=== PATIENT | female | born 1960 | race Caucasian/White ===

== ENCOUNTER → 2017-03-13 | Outpatient (CLI) | payer OTHER ==
[~2017-03-13] MED LIST: ACIDOPHILUS1 CAP PO; ALPRAZOLAM1 MG PO; ASPIRIN 81MG TA81 MG PO; ASPIRIN CHILDRE81 M1 PO; BACLOFEN 10MG T10 MG PO; BENZONATATE100 MG PO; CLEOCIN HCL300 MG PO; DICYCLOMINE20 MG PO; FIORICET 325 MG1 TAB PO; FOLIC ACID0.4 MG PO; HYDROCODONE/ACE1 TA5 PO; HYZAAR 50-12.51 EACH PO; IBUPROFEN200 MG PO; IMODIUM2 MG PO; LASIX 20MG. TAB20 MG PO; LEVAQUIN500 MG PO; LISINOPRIL 10MG10 MG PO; LUTEIN20 M1 PO; MEDROL 4MG. DOSE4 MG PO; METFORMIN500 MG PO; MOTRIN400 MG PO; MOTRIN600 MG PO; NEXIUM40 MG PO; NORFLEX100 MG PO; OMEPRAZOLE40 MG PO; POTASSIUM CHLO10 ME3 PO; PROVENTIL0.09 MG/A1 IH; SALMETEROL-F28 PUFFS IN; SAVELLA100 MG PO; SAVELLA50 MG PO; SERTRALINE 100100 MG PO; SINGULAIR 10 MG10 MG PO; SPIRIVA HA1 PUFF/INH IH; SYSTANE 0.4%-0.1 SOL OP; TOPROL XL 50MG50 MG PO; TRAMADOL 50MG T50 M1 PO; VENTOLIN H0.09 MG/AC IH; XANAX 1MG TABLET1 MG PO; ZETIA10 MG PO; ZOFRAN4 MG PO; ZOLOFT100 MG PO
--- NOTE | 2017-03-13 12:16 | RADIOLOGY REPORT PS360 ---
EXAM: CERVICAL SPINE 4 OR 5 VIEWS HISTORY: Neck pain with right shoulder pain ACUTE RT SHOULDER PAIN ORDERING PHYSICIAN: Tiffany Mix PATIENT AGE: 57 years COMPARISON: None FINDINGS: No fracture or dislocation. No lytic or blastic change. There is minimal anterolisthesis of C2 on C3, C3 on C4, and C4 on C5 of 2 to 3 mm at each level. There are osteoarthritic changes of the atlantoaxial joint. Prominent facet hypertrophic/sclerotic changes are present C3-C7 on both sides with uncovertebral and facet hypertrophy. There is resultant severe right-sided foraminal narrowing at C3-C4 and C4-C5 with moderate foraminal narrowing at C5-C6. On the left there is severe foraminal narrowing at C3-C4 and C4-C5 with moderate foraminal narrowing at C5 C6 and C6-C7. IMPRESSION: Severe facet spondylosis with bilateral foraminal narrowing as described above
--- NOTE | 2017-03-13 12:18 | RADIOLOGY REPORT PS360 ---
[id number] VIEWS HISTORY: ACUTE RT SHOULDER PAIN ORDERING PHYSICIAN: Tiffany Mix PATIENT AGE: 57 years COMPARISON: 09/24/2015 FINDINGS: Mild osteoarthritic changes involve the acromioclavicular joint and glenohumeral joint. There is mild hypertrophic change along the inferior aspect of the acromion. No fracture or dislocation. No lytic or blastic change. No significant subacromial stenosis. Incidental note is made of multiple calcified granulomas of the right lung with an old fracture of the right seventh rib. IMPRESSION: Mild acromioclavicular and glenohumeral osteoarthritic change
== END ==
LOC: RAD 11:06
DX: M25.511 Pain in right shoulder (principal)

== ENCOUNTER → 2017-03-22 | Outpatient (CLI) | payer OTHER ==
--- NOTE | 2017-03-22 17:23 | RADIOLOGY REPORT PS360 ---
MRI-C-SPINE W/O, MRI-3D RENDERING/MYELOGRAM HISTORY: Neck pain with bilateral arm pain and numbness and tingling Spondylosis OF CERVICAL REGION, neck pain with right shoulder pain, abnormal plain films, assess spondylosis with foraminal narrowing ORDERING PHYSICIAN: Tiffany Mix PATIENT AGE: 57 years COMPARISON: Radiograph of 03/13/2017 TECHNIQUE: Standard multiplanar multiecho sequences are performed without contrast. 3-D MIP and myelographic images are also rendered and reviewed FINDINGS: There is normal alignment. The craniocervical junction has an unremarkable appearance. C2-C3: Mild/moderate left-sided foraminal narrowing from facet and uncovertebral hypertrophy. C3-C4: Moderate right foraminal narrowing from uncovertebral hypertrophy. C4-C5: Moderate to severe facet hypertrophic change right greater than left with moderate -severe right-sided foraminal narrowing C5-C6: Facet hypertrophy with mild right-sided foraminal narrowing. C6-C7: Mild facet hypertrophic change. C7-T1 mild facet hypertrophic change. No disc herniation or canal stenosis evident. There is increased T1 and T2 signal involving the T2 vertebral body consistent with lipomatous involvement IMPRESSION: 1. Facet spondylosis as described above with resultant foraminal narrowing mild to moderate on the left at C2-C3, moderate on the right at C3-C4, moderate to severe on the right at C4-C5 and mild on the right at C5-C6 2. No disc herniation or canal stenosis
== END ==
LOC: RAD 07:53
DX: M43.12 Spondylolisthesis, cervical region (principal)

== ENCOUNTER 2017-08-03 14:42 | Observation (INO) | payer OTHER ==
[~2017-08-03] VITALS: Ht 154.9 cm; Wt 99.4 kg
[2017-08-03] MEDS ORDERED: BREO ELLIPTA1 POW IH (16:49)
[2017-08-03] MEDS ORDERED: GABAPENTIN100 M1 PO (16:50)
[2017-08-03] MEDS ORDERED: TRADJENTA5 MG PO (16:51)
[2017-08-03] MEDS ORDERED: LOSARTAN POTASS1 TA1 PO (16:53)
[2017-08-03 16:55] VITALS: BP 137/64
[2017-08-03 16:56] VITALS: BP 137/64
--- NOTE | 2017-08-03 18:46 | RADIOLOGY REPORT PS360 ---
CHEST(2 VIEWS-NOT PORTABLE) HISTORY: chest pain chest pain. Previous lung biopsy on right History of lymphoma B cell Patient Age: 57 years: Female Ordering Physician: Huan Malave MD TECHNIQUE: PA and lateral chest COMPARISON :November 17, 2015 PA and lateral chest. Also CT chest May 2015 FINDINGS No focal pneumonia.. No pneumothorax Right chest We again see the mild pleural thickening along the lateral right chest which appears similar if not slightly more pronounced than 2015 studies. Associated elevation right hemidiaphragm and chronic pleural changes right base. No pleural effusion. No acute findings. Vascular clips right axilla overlying the right chest with smaller right breast versus left. Requires correlation clinically. Similar appearance seen on 2015 CT Left chest. Lungs clear no active disease. The heart upper normal in size and similar to 2015 studies. Magaly and mediastinal structures unremarkable. Osseous chest wall appears similar and stable. T-spine intact. IMPRESSION: .. Nothing definitely acute No prominent change since November 2014 chest film Chronic pleural changes on right with elevation right hemidiaphragm Diffuse pleural thickening along the lateral right chest again seen perhaps very slight more pronounced vs 2015.
[2017-08-03 19:15] VITALS: BP 137/64
[2017-08-03 20:06] VITALS: BP 119/42
[2017-08-04] VITALS (15 sets, daily range): BP systolic 100–128; BP diastolic 52–71
[2017-08-04 05:43] LABS: HEMOGLOBIN 13.7 g/dL (12.2-16.2); LYMPH % 20.1 % (10-50.0)
[2017-08-04 05:44] LABS: LYMPH # 1.3 K/mm3 (0.7-4.5)
--- NOTE | 2017-08-04 08:11 | PHARMACY CLINIC NOTE ---
Patient Demographics Patient Demographics Admission date: 08/03/17 Date: 08/04/17 Time: 0810 Allergies Coded Allergies: Sulfa (Sulfonamide Antibiotics) (Intermediate, I-RASH 04/07/17) codeine (Intermediate, HEART RACE 04/07/17) vancomycin (Intermediate, I-RASH 04/07/17) Cephalosporins (04/07/17) Macrolides (04/07/17) Penicillins (04/07/17) gabapentin (CRAZY 04/07/17) latex (REDNESS 04/07/17) soy (04/07/17) Influenza Virus Vaccines (SWELLING 04/07/17) pneumococcal vaccine (REDNESS 04/07/17) HEIGHT- FT: 5 IN: 1.00 K.395 VTE General Information Labs: Laboratory Tests 08/04 0505 Hematology Hgb (12.2 - 16.2 g/dL) 13.7 Hct (37.0 - 47.0 %) 42.0 Plt Count (142 - 424 K/mm3) 225 Disclaimer The following section includes nursing documentation that has been pulled in for pharmacy review. Patient's VTE score: 3 Patient's VTE Risk: LOW RISK Clinical trial participant? No VTE prophylaxis [id number] VTE prophylaxis ordered? Yes Type of prophylaxis/treatment: RADHA at 0810
--- NOTE | 2017-08-04 08:19 | CONSULT NOTE ---
Standard Demographics Patient Demo Date of Consultation: 08/04/17 Referring Provider: Mindy Malave MD Reason for Consultation: Angina class 3 PRIMARY DIAGNOSIS: ANGINA Problem list Problem list: 1. CAD, mild per patient, about 2006, [place], [place], Dr. Tomy Marin 2. DM, treated for about 5 yrs 3. HTN 4. Hyperlipidemia, intolerant of statins 5. B type Lymphoma, followed by Dr. Mckinley at A. S/P FNA of RLL with resultant lower lobe excision, Dr. Ortega B. S/P RNA of Left lung nodule 6. History of RIGHT breast cancer status post lumpectomy, chemotherapy and radiation approximately 1997 A. Patient has a marker and a nodule in the LEFT breast is being followed routinely. 7. Irritable bowel syndrome, diarrhea predominant 8. Chronic pain syndrome History of present illness: History of present illness: 57-year-old white female admitted from the primary care office yesterday for exertional shortness of breath over several days. Patient has a history of mild coronary disease by cardiac catheterization proximal and 10 years ago, she is diabetic, she smokes, takes treatment for hypertension and has history of hyperlipidemia but intolerant of statin therapy. She relates several days of increasing exertional shortness of breath with some intermittent discomfort between shoulder blades and in the back. She initially mention some LEFT shoulder discomfort 2 days ago but this seems more positional in nature. Patient denies any chest pressure but states her chest does feel tight upon exertion. No recent fever, chills, nausea, vomiting or diarrhea. She has noted some lower extremity edema over the last couple of days. Patient was admitted for possible angina pectoris. Troponins are normal overnight. Electrocardiogram is sinus and normal. Cardiology consulted for evaluation. Past Medical History: General: Hypertension Yes CVA No Seizures No TB No COPD Yes Asthma Yes Diabetes Yes Insulin Dependent No Insulin Pump No Angina No CA No Hyperlipidemia Yes Urinary No Cancer Yes Rheumatic H.D. No Ulcers No MRSA No GB Disease Yes Other CAD, MITRAL VALVE THICKEN Past Surgical HX: Previous Surgery?Y HYSTER C SECTION RT BREAST LUMPECTOMY Cholecystectomy LUNG BIOPSY X 4 CORE BIOPSY LT BREAST Allergies Coded Allergies: Sulfa (Sulfonamide Antibiotics) (Intermediate, I-RASH 04/07/17) codeine (Intermediate, HEART RACE 04/07/17) vancomycin (Intermediate, I-RASH 04/07/17) Cephalosporins (04/07/17) Macrolides (04/07/17) Penicillins (04/07/17) gabapentin (CRAZY 04/07/17) latex (REDNESS 04/07/17) soy (04/07/17) Influenza Virus Vaccines (SWELLING 04/07/17) pneumococcal vaccine (REDNESS 04/07/17) Home medications: Active Scripts Montelukast Sodium (Singulair 10MG) 10 MG PO DAILY #30 TAB Ref 2 Prov: 09/02/15 Reported Medications FLUTICASONE/VILANTEROL (Breo Ellipta 100-25 Mcg INH) 1 POW IH DAILY Gabapentin (Gabapentin 100MG) 100 MG PO BID Linagliptin (Tradjenta) 5 MG PO DAILY LOSARTAN/HYDROCHLOROTHIAZIDE (Losartan-Hctz 100-25 MG Tab) 1 TAB PO DAILY SERTRALINE HYDROCHLORIDE (Zoloft 100MG) 100 MG PO DAILY Metoprolol Succinate Xl (Toprol Xl) 50 MG PO QHS ASPIRIN (Aspirin) 81 MG PO QHS Current Medications: Current Medications Fentanyl Citrate 25 MCG PRN PRN IV Fentanyl Citrate 50 MCG PRN PRN IV Flumazenil 0.2 MG PRN PRN IV Heparin Sodium (Beef Lung) 5,000 UNITS PRN PRN IV Heparin Sodium/Sodium Chloride 3,000 UNITS PRN PRN IV Lidocaine HCl 20 ML ONCE ONE IJ (DC) Midazolam HCl 1 MG PRN PRN IV Midazolam HCl 1 MG PRN PRN IV Naloxone HCl 0.4 MG [id number] PRN IV Nitroglycerin 800 MCG PRN PRN IV Verapamil HCl 5 MG PRN PRN IV Aspirin 81 MG QHS PO Gabapentin 100 MG BID PO (DC) Gabapentin 100 MG BID PO Metoprolol Succinate 50 MG QHS PO Montelukast Sodium 10 MG QHS PO (DC) Montelukast Sodium 10 MG QHS PO Gabapentin 0 .STK-MED ONE .ROUTE (DCr) Montelukast Sodium 0 .STK-MED ONE PO (DC) Acetaminophen 650 MG Q4HP PRN PO Diagnostic Test (Pha) 1 EACH W/MEALS&HS FS Insulin Human [rDNA origin] SEE ADMIN CRITERIA FOR MEDIUM INTENSITY W/MEALS&HS SC Nicotine 21 MG DAILYP PRN TD Sodium Chloride 10 ML PRN PRN IV Immunization HX DT/Tetanus Unknown Pneumonia Excluded Other ALLERGIC TB Test in last year No Family history Family HX Diabetes No CAD No Hypertension No Hyperlipidemia Yes Cancer Yes TB No Social Hx: Smoking HX Tobacco Yes Type Cigarettes Packs/day 1 1/2 - 2 PACKS Are you/the child exposed to second-hand smoke: Yes Alcohol Alcohol: No Hx of Drug Use Drug Use? No Patien't marital status is Patient's support system is good Review of systems: Constitutional weakness. Respiratory SOB with excertion. Cardiovascular see HPI Gastrointestinal/Abdominal No no symptoms reported Genitourinary No: no symptoms reported. Musculoskeletal back pain. Neurological No: no symptoms reported. Exam: Admission Vital Signs: 1ST Vital Signs Result Date Time Pulse Ox 98 08/03 165 O2 Delivery ROOM AIR 08/03 165 B/P 137/64 08/03 1655 Temp 97.9 08/03 165 Pulse 74 08/03 1655 Resp 20 08/03 165 Last Vital Signs: Vital Signs Result Date Time Pulse Ox 94 08/04 429 B/P 116/55 08/04 042 O2 Delivery ROOM AIR 08/04 429 Temp 97.6 08/04 042 Pulse 62 08/04 0429 Resp 20 08/04 042 Exam General appearance: alert, awake, no acute distress Neck: no carotid bruit, no JVD Cardiovascular: regular rate & rhythm, no murmur Respiratory: clear to auscultation, good air movement ABD: soft, no tenderness Extremities: moves all, no peripheral edema Neuro: alert, intact, oriented Laboratory data: Laboratory Tests 08/04/17 0505: Creatine Kinase 85, CK-MB (CK-2) Rel Index 1.2, CK and CKMB Interp 1.0, Troponin I < 0.02 08/04/17 0505: Sodium 134 L, Potassium 3.5, Chloride 101, Carbon Dioxide 28, BUN 8, Creatinine 0.9, Estimated Creat Clear 111, Estimated GFR (MDRD) 65, Glucose 160 H, Calcium 9.5, WBC 6.3, RBC 4.56, Hgb 13.7, Hct 42.0, MCV 92.1, RDW 17.9 H, Plt Count 225 , Gran % 74.2, Gran # 4.7, Lymphocytes % 20.1, Monocytes % 5.7, Lymphocytes # 1.3, Monocytes # 0.4, PUBS MCHC 32.6, MCH 30.0 08/03/17 2315: Creatine Kinase 90, CK-MB (CK-2) Rel Index 0.8, CK and CKMB Interp 0.7, Troponin I < 0.02 08/03/171951: POC Glucose 242 H 08/03/171724: Creatine Kinase 83, CK-MB (CK-2) Rel Index 0.7, CK and CKMB Interp 0.6, Troponin I < 0.02 08/03/17 172: Sodium 133 L, Potassium 3.8, Chloride 99, Carbon Dioxide 29, BUN 9, Creatinine 1.0, Estimated Creat Clear 100, Estimated GFR (MDRD) 58 L, Glucose 269 H, Calcium 9.6, Total Bilirubin 0.3, AST 15, ALT 25, Alkaline Phosphatase 114, Total Protein 7.4, Albumin 3.1 L, Globulin 4.3 H, Albumin/Globulin Ratio 0.7 L 08/03/171714: POC Glucose 249 H Plan: Assessment: 1. Exertional shortness of breath with concern for angina pectoris in this diabetic patient with known previous coronary disease by cath approximately 2006. NADJA score of 4 (coronary disease, cardiac risk factors, recurrent angina symptoms, daily aspirin use). Cardiac catheterization recommended. Risks, benefits and procedure explained. Patient agrees to proceed. In light of the patient's tobacco use history, previous radiation therapy and previous lobectomy with recent lower extremity edema, would recommend RIGHT heart cath at the same time. 2. Hypertension 3. Diabetes mellitus 4. Hyperlipidemia 5. B cell lymphoma 6. Tobacco use Recommendations: Discussed with Dr. Man. See above. at 0818
--- NOTE | 2017-08-04 08:29 | ACUTE CARE PROGRESS NOTE (QUA) ---
Progress Notes Subjective Date 08/04/17 Time 0826 Patient/family reports: feeling better, no complaints Nursing reports: alert, no complaints Objective Findings Laboratory Tests 08/04/17 0505: Creatine Kinase 85, CK-MB (CK-2) Rel Index 1.2, CK and CKMB Interp 1.0, Troponin I < 0.02 08/04/17 0505: Sodium 134 L, Potassium 3.5, Chloride 101, Carbon Dioxide 28, BUN 8, Creatinine 0.9, Estimated Creat Clear 111, Estimated GFR (MDRD) 65, Glucose 160 H, Calcium 9.5, WBC 6.3, RBC 4.56, Hgb 13.7, Hct 42.0, MCV 92.1, RDW 17.9 H, Plt Count 225 , Gran % 74.2, Gran # 4.7, Lymphocytes % 20.1, Monocytes % 5.7, Lymphocytes # 1.3, Monocytes # 0.4, PUBS MCHC 32.6, MCH 30.0 08/03/17 2315: Creatine Kinase 90, CK-MB (CK-2) Rel Index 0.8, CK and CKMB Interp 0.7, Troponin I < 0.02 08/03/17 195: POC Glucose 242 H 08/03/17 1725: Creatine Kinase 83, CK-MB (CK-2) Rel Index 0.7, CK and CKMB Interp 0.6, Troponin I < 0.02 08/03/17 1725: Sodium 133 L, Potassium 3.8, Chloride 99, Carbon Dioxide 29, BUN 9, Creatinine 1.0, Estimated Creat Clear 100, Estimated GFR (MDRD) 58 L, Glucose 269 H, Calcium 9.6, Total Bilirubin 0.3, AST 15, ALT 25, Alkaline Phosphatase 114, Total Protein 7.4, Albumin 3.1 L, Globulin 4.3 H, Albumin/Globulin Ratio 0.7 L 08/03/17 1715: POC Glucose 249 H Vital Signs Date Time Temp Pulse Resp B/P Pulse O2 O2 Flow FiO2 Ox Delivery Rate 08/04 08 98.0 60 18 128/71 96 ROOM AIR 08/04 429 97.6 62 20 116/55 94 ROOM AIR 08/04 001 98.6 63 20 112/54 97 ROOM AIR 08/03 2006 98.3 76 20 119/42 95 ROOM AIR 09/28 1915 97.9 74 20 137/64 98 08/03 1656 97.9 74 20 137/64 98 ROOM AIR 08/03 1655 74 08/03 1655 97.9 74 20 13764 08/03 165 98 ROOM AIR Current Medications Fentanyl Citrate 25 MCG PRN PRN IV Fentanyl Citrate 50 MCG PRN PRN IV Flumazenil 0.2 MG PRN PRN IV Heparin Sodium (Beef Lung) 5,000 UNITS PRN PRN IV Heparin Sodium/Sodium Chloride 3,000 UNITS PRN PRN IV Lidocaine HCl 20 ML ONCE ONE IJ (DC) Midazolam HCl 1 MG PRN PRN IV Midazolam HCl 1 MG PRN PRN IV Naloxone HCl 0.4 MG [id number] PRN IV Nitroglycerin 800 MCG PRN PRN IV Verapamil HCl 5 MG PRN PRN IV Aspirin 81 MG QHS PO Gabapentin 100 MG BID PO (DC) Gabapentin 100 MG BID PO Metoprolol Succinate 50 MG QHS PO Montelukast Sodium 10 MG QHS PO (DC) Montelukast Sodium 10 MG QHS PO Gabapentin 0 .STK-MED ONE .ROUTE (DCr) Montelukast Sodium 0 .STK-MED ONE PO (DC) Acetaminophen 650 MG Q4HP PRN PO Diagnostic Test (Pha) 1 EACH W/MEALS&HS FS Insulin Human [rDNA origin] SEE ADMIN CRITERIA FOR MEDIUM INTENSITY W/MEALS&HS SC Nicotine 21 MG DAILYP PRN TD Sodium Chloride 10 ML PRN PRN IV Last VS-Temp:98.0 B/P:128/71 Pulse:60 Resp:18 SaO2:96 ROOM AIR Last weight lbs:219 oz:2 K.395 Method:Bed Scales Exam General appearance: normal appearance, alert, awake, no acute distress Eyes: normal exam ENT: normal exam Neck: normal inspection, full range of motion Cardiovascular: normal exam, regular rate & rhythm Respiratory: normal exam, clear to auscultation, chest non-tender, good air movement, no respiratory distress ABD: normal exam, soft Genitourinary: normal voiding & quantity Extremities: normal exam, moves all, warm Musculoskeletal: normal exam Skin: normal exam, intact, warm Neuro: normal exam, alert, intact, oriented Reviewed: allergies, medications, vital signs, lab results, radiology report, consult note Assessment/Plan Problem List 1. Edema 2. Chest wall pain Patient condition Stable Plan: continue current care, consult radiology physician assistant This inpt stay is expected to cross 2 MNs from start of care No Comments: jennifer delgado at 0824
--- NOTE | 2017-08-04 11:01 | RADIOLOGY REPORT PS360 ---
CARDIAC CATHETERIZATION DATE OF CATHETERIZATION:08/04/2017 10:40 AM PROCEDURES: 1. Right heart catheterization 2. Left heart catheterization 3. Left ventriculogram 4. Selective coronary angiogram INDICATION FOR TEST: 1. Class IV angina 2. Class III and IV congestive heart failure 3. Pulmonary hypertension Informed consent was obtained prior to the procedure. COMPLICATIONS: None ESTIMATED BLOOD LOSS: Less than 10 ml. TECHNIQUE: One percent lidocaine was used to anesthetize the right groin. The right femoral artery was accessed via the Seldinger technique. A 4-Mongolian and 7 dutch sheath was placed in the right femoral artery and vein respectfully. The JR-4 and JL-4 catheter was also used to perform left heart catheterization, left ventriculography and selective coronary angiogram. At the end of the procedure the patient was transferred to the post-op holding area in stable condition for arterial sheath removal. ANGIOGRAPHIC RESULTS: 1. The left main artery normal 2. The left anterior descending artery has mild luminal irregularities 3. The circumflex artery is non dominant and has mild luminal irregularities 4. The right coronary artery is dominant and has mid vessel 30% eccentric stenosis 5. The [place] ventriculogram reveals hyperdynamic ventricle at 75% The left ventricular end-diastolic pressure 20 mmHg HEMODYNAMICS: Right atrial pressure is 12 mm Hg. Pulmonary arterial pressure is 40/30 mm Hg. Pulmonary artery occlusion pressure is 22 mm Hg. SATURATIONS: RA is 73 %. PA is 70 %. IMPRESSION: 1. Mild nonflow limiting coronary artery disease 2. Hyperdynamic ventricle with at least moderate diastolic dysfunction accompanied by moderate pulmonary hypertension PLAN: 1. Baby aspirin daily 2. Patient would benefit from verapamil combined with beta blockers and diuretics. Her LVEDP is high which is subsequently causing her pulmonary hypertension. Patient has class III to IV diastolic congestive heart failure.
[2017-08-04 11:04] LABS: ARTERIAL O2 SAT CATH LAB 70 % (90-100); VENOUS O2 SAT CATH LAB 73 % (75-80)
--- NOTE | 2017-08-04 12:41 | RADIOLOGY REPORT PS360 ---
PROCEDURE: 2-D M-mode and color Doppler study INDICATIONS FOR THE TEST: Chest pain COPDX Heart Murmur Tobacco SmokingX Palpitations FatigueX Syncope EdemaX HypertensionXDiabetes MellitusX Rheumatic Fever SOB DOEXObesityXHyperlipidemia Family History HD Additional History PATIENT INFORMATION HEIGHT: 63 WEIGHT:219 GENDER: Female B/P:110/70 2-D/M-MODE INTERPRETATION: 2-D MEASUREMENTS OBSERVED VALUES IN CMS Right Ventricular Dimension (RVDd) 2.9 Interventricular Septum (Thickness)(IVsd) 1.1 Left Ventricular Internal Dimensions(LVIDd) 4.6 Left Ventricular Posterior Wall (Thickness)(LVPWd) 1.1 Aortic Root 2.8 Aortic Cusp Separation 2.0 Left Atrial Dimensions (LAD) 3.7 2D 1. Left atrium is mildly enlarged, left ventricle is normal size, left ventricle wall thickness is upper limit of the normal, there is preserved left ventricular systolic function, visually estimated ejection fraction 55% with no obvious regional wall motion abnormality. 2. The right atrium is normal size, right ventricle is mildly enlarged with normal contractility. 3. The aortic valve is minimally thickened and calcified, there is no aortic stenosis. 4. The mitral valve leaflets are minimally thickened, morphology of the mitral valve is not well visualized. 5. The tricuspid valve is structurally normal. 6. No significant pericardial effusion noted. DOPPLER INTERROGATION: Doppler interrogation of the aortic, mitral and tricuspid valvular presence of moderate to severe mitral and mild tricuspid regurgitation noted, tricuspid regurgitant jet velocity insufficient for calculation of the right ventricular systolic pressure, tissue Doppler is indicated of raised left atrial pressure. CONCLUSION: 1. Mildly enlarged left atrium, normal left ventricular size, visually estimated ejection fraction of 55% with no obvious regional wall motion abnormality. Tissue Doppler is indicated of raised left atrial pressure. 2. Abnormal mitral valve, morphology is not well visualized, this is associated with moderate to severe mitral regurgitation, if clinically indicated a transesophageal echocardiogram is recommended for further evaluation. 3. Mildly enlarged right ventricle with normal contractility. 4. No significant pericardial effusion noted.
[2017-08-04] MEDS ORDERED: CARDIZEM CD120 MG PO (16:40)
--- NOTE | 2017-08-04 16:46 | Discharge Summary Standard ---
Demographics: Admit date: 08/03/17 Chief complaint: chest pressure PRIMARY DIAGNOSIS: ANGINA Allergies: Coded Allergies: Sulfa (Sulfonamide Antibiotics) (Intermediate, I-RASH 04/07/17) codeine (Intermediate, HEART RACE 04/07/17) vancomycin (Intermediate, I-RASH 04/07/17) Cephalosporins (04/07/17) Macrolides (04/07/17) Penicillins (04/07/17) gabapentin (CRAZY 04/07/17) latex (REDNESS 04/07/17) soy (04/07/17) Influenza Virus Vaccines (SWELLING 04/07/17) pneumococcal vaccine (REDNESS 04/07/17) History of present illness: History of present illness: 57-year-old white female admitted from the primary care office yesterday for exertional shortness of breath over several days. Patient has a history of mild coronary disease by cardiac catheterization proximal and 10 years ago, she is diabetic, she smokes, takes treatment for hypertension and has history of hyperlipidemia but intolerant of statin therapy. She relates several days of increasing exertional shortness of breath with some intermittent discomfort between shoulder blades and in the back. She initially mention some LEFT shoulder discomfort 2 days ago but this seems more positional in nature. Patient denies any chest pressure but states her chest does feel tight upon exertion. No recent fever, chills, nausea, vomiting or diarrhea. She has noted some lower extremity edema over the last couple of days. Patient was admitted for possible angina pectoris. Troponins are normal overnight. Electrocardiogram is sinus and normal. Cardiology consulted for evaluation. Past medical history: Family HX Diabetes No CAD No Hypertension No Hyperlipidemia Yes Cancer Yes TB No Immunization HX DT/Tetanus Unknown Pneumonia Excluded/Contraindicated Other ALLERGIC TB Test in last year No General CAD? No Angina: No [place]: No Hypertension? Yes Hyperlipidemia? Yes CHF? No DVT? No PE? No COPD? Yes Asthma? Yes Anemia? No GERD? Yes Gastric ulcers? No GI Bleed? No Hernia? No Thyroid Problems? No Hypothyroidism? No CVA? No Seizures? No Diabetes? Yes Insulin Dependent: No Insulin Pump: No Home FSBS? Yes Renal Insuffiency? No UTI? No Stones? No BPH? No GB Disease: Yes Nephritic Syndrome? No Asplenia? No Hepatitis? No Sickle Cell Disease? No Arthritis? No Migraines? Yes Cataracts? No Glaucoma? No MRSA? No HIV? No TB? No Anxiety? Yes Depression? No Cancer? Yes Site: RT BREAST 7 YR AGO Past Surgical HX Previous Surgery?Y HYSTER C SECTION RT BREAST LUMPECTOMY Cholecystectomy LUNG BIOPSY X 4 CORE BIOPSY LT BREAST Current home meds: Active Scripts Montelukast Sodium (Singulair 10MG) 10 MG PO DAILY #30 TAB Ref 2 Prov: 09/02/15 Reported Medications FLUTICASONE/VILANTEROL (Breo Ellipta 100-25 Mcg INH) 1 POW IH DAILY Gabapentin (Gabapentin 100MG) 100 MG PO BID Linagliptin (Tradjenta) 5 MG PO DAILY LOSARTAN/HYDROCHLOROTHIAZIDE (Losartan-Hctz 100-25 MG Tab) 1 TAB PO DAILY SERTRALINE HYDROCHLORIDE (Zoloft 100MG) 100 MG PO DAILY Metoprolol Succinate Xl (Toprol Xl) 50 MG PO QHS ASPIRIN (Aspirin) 81 MG PO QHS Social Hx: Smoking HX Tobacco Yes Type Cigarettes Packs/day 1 1/2 - 2 PACKS Are you/the child exposed to second-hand smoke: Yes Alcohol Alcohol: No Hx of Drug Use Drug Use? No Review of systems: Constitutional see HPI. Respiratory see HPI, shortness of breath, SOB with excertion. Cardiovascular see HPI, chest pain, edema Gastrointestinal/Abdominal No no symptoms reported Genitourinary No: no symptoms reported. Musculoskeletal No: no symptoms reported. Neurological No: see HPI. Exam: Lab data for last 24 hours: Laboratory Tests 08/04/17 1130: POC Glucose 135 H 08/04/17 1038: ABG O2 Sat (Measured) 70 L, VBG O2 Sat (Patricia) 73 L 08/04/17 0505: Creatine Kinase 85, CK-MB (CK-2) Rel Index 1.2, CK and CKMB Interp 1.0, Troponin I < 0.02 08/04/17 0505: Sodium 134 L, Potassium 3.5, Chloride 101, Carbon Dioxide 28, BUN 8, Creatinine 0.9, Estimated Creat Clear 111, Estimated GFR (MDRD) 65, Glucose 160 H, Calcium 9.5, WBC 6.3, RBC 4.56, Hgb 13.7, Hct 42.0, MCV 92.1, RDW 17.9 H, Plt Count 225 , Gran % 74.2, Gran # 4.7, Lymphocytes % 20.1, Monocytes % 5.7, Lymphocytes # 1.3, Monocytes # 0.4, PUBS MCHC 32.6, MCH 30.0 08/03/17 2315: Creatine Kinase 90, CK-MB (CK-2) Rel Index 0.8, CK and CKMB Interp 0.7, Troponin I < 0.02 08/03/171951: POC Glucose 242 H 08/03/17 172: Creatine Kinase 83, CK-MB (CK-2) Rel Index 0.7, CK and CKMB Interp 0.6, Troponin I < 0.02 08/03/17 172: Sodium 133 L, Potassium 3.8, Chloride 99, Carbon Dioxide 29, BUN 9, Creatinine 1.0, Estimated Creat Clear 100, Estimated GFR (MDRD) 58 L, Glucose 269 H, Calcium 9.6, Total Bilirubin 0.3, AST 15, ALT 25, Alkaline Phosphatase 114, Total Protein 7.4, Albumin 3.1 L, Globulin 4.3 H, Albumin/Globulin Ratio 0.7 L 08/03/17 171: POC Glucose 249 H Admission vital signs: 1ST Vital Signs Result Date Time Pulse Ox 98 08/03 165 O2 Delivery ROOM AIR 08/03 1655 B/P 137/64 08/03 165 Temp 97.9 08/03 165 Pulse 74 08/03 165 Resp 20 08/03 165 Exam General appearance: normal appearance, alert, active, no acute distress Eyes: normal exam ENT: normal exam Neck: normal inspection, full range of motion, range of motion Cardiovascular: normal exam, regular rate & rhythm Respiratory: aerating well, clear to auscultation, chest non-tender, good air movement ABD: normal exam, soft Genitourinary: normal voiding & quantity Extremities: normal exam, moves all, warm Musculoskeletal: normal exam Skin: normal exam, intact, warm Neuro: normal exam, alert, intact, oriented Hospital Course Hospital Course: cardiology consult, cardiac work up echo results:CONCLUSION: 1. Mildly enlarged left atrium, normal left ventricular size, visually estimated ejection fraction of 55% with no obvious regional wall motion abnormality. Tissue Doppler is indicated of raised left atrial pressure. 2. Abnormal mitral valve, morphology is not well visualized, this is associated with moderate to severe mitral regurgitation, if clinically indicated a transesophageal echocardiogram is recommended for further evaluation. 3. Mildly enlarged right ventricle with normal contractility. 4. No significant pericardial effusion noted. cath results: PLAN: 1. Baby aspirin daily 2. Patient would benefit from verapamil combined with beta blockers and diuretics. Her LVEDP is high which is subsequently causing her pulmonary hypertension. Patient has class III to IV diastolic congestive heart failure. will contiune all bp meds for now Medications Medications: Discharge meds are as noted. Follow up Follow up in office in: 2 WEEKS with: Soren Man MD Comment: monitor bp close at 8023
== END 2017-08-04 18:50 | disposition home or self-care (01) ==
LOC: 2ND 14:42
PROVIDERS: Emergency Medicine; Internal Medicine
DX: R07.89 Other chest pain (principal); R06.02 Shortness of breath; E11.9 Type 2 diabetes mellitus without complications; E78.5 Hyperlipidemia, unspecified; Z85.3 Personal history of malignant neoplasm of breast; Z92.21 Personal history of antineoplastic chemotherapy; Z92.3 Personal history of irradiation; G89.4 Chronic pain syndrome; J44.9 Chronic obstructive pulmonary disease, unspecified; F17.210 Nicotine dependence, cigarettes, uncomplicated; C85.10 Unspecified B-cell lymphoma, unspecified site; R60.9 Edema, unspecified; I11.0 Hypertensive heart disease with heart failure; I50.30 Unspecified diastolic (congestive) heart failure; I25.10 Atherosclerotic heart disease of native coronary artery without angina pectoris; I27.2 Other secondary pulmonary hypertension; Z79.84 Long term (current) use of oral hypoglycemic drugs; Z79.82 Long term (current) use of aspirin; Z79.51 Long term (current) use of inhaled steroids; Z79.899 Other long term (current) drug therapy
CPT/HCPCS: C1725; C1751; C1769; C1894; G0378; J1644; Q9967

== ENCOUNTER 2017-09-14 18:22 | Emergency (ER) | payer OTHER ==
[~2017-09-14] VITALS: Ht 154.9 cm; Wt 74.8 kg
[~2017-09-14 18:22] MED LIST changes: +BREO ELLIPTA1 POW IH; +CARDIZEM CD120 MG PO; +GABAPENTIN100 M1 PO; +LOSARTAN POTASS1 TA1 PO; +TRADJENTA5 MG PO
[2017-09-14 18:47] LABS: HEMOGLOBIN 11.9 g/dL (12.2-16.2); LYMPH # 1.7 K/mm3 (0.7-4.5); LYMPH % 9.9 % (10-50.0)
--- NOTE | 2017-09-14 18:47 | Emergency Room Report ---
See Addendum History of Present Illness Time Seen by MD Monge Presenting Problem in Triage Pt arrived:Walked Presenting Problem:COUGH CONGESTED; SEEN BY GREG, TOLD TO COME TO ED BECAUSE SHE MIGHT HAVE A BLOOD CLOT. PT COMPLAINS OF LEFT SIDE RIB PAIN THAT IS ACCENTUATED B BY LUNG ACTIVITIES. 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 N Clinical Suspician of Infection? N Mental Status: 1 - Regular (Normal Baseline) Sepsis Risk:Low Sepsis Risk Have you (or family members/close friends) recently traveled outside the [place]? N If Yes, where/when: Have you had exposure to infectious disease within the past month? TB? Other? Specify: 57 years old white female with history of chronic obstructive pulmonary disease and renal disease. She developed upper respiratory infection in the form of cough productive of yellow sputum. Yesterday, he was seen by her primary care physician was given antibiotics in the form of Levaquin 250 once a day. Today she developed sudden onset LEFT sided chest pain. That is worse with deep breathing and cough. She contacted her primary care physician alternative to come here to the ED to be ruled out for PE. She is in no respiratory distress. She continues to cough. Source patient, RN notes reviewed, family, old records Exam Limitations no limitations ALLERGIES Coded Allergies: Sulfa (Sulfonamide Antibiotics) (Intermediate, I-RASH 04/07/17) codeine (Intermediate, HEART RACE 04/07/17) vancomycin (Intermediate, I-RASH 04/07/17) Cephalosporins (04/07/17) Macrolides (04/07/17) Penicillins (04/07/17) gabapentin (CRAZY 04/07/17) latex (REDNESS 04/07/17) soy (04/07/17) Influenza Virus Vaccines (SWELLING 04/07/17) pneumococcal vaccine (REDNESS 04/07/17) Home Medications Active Scripts Montelukast Sodium (Singulair 10MG) 10 MG PO DAILY #30 TAB Ref 2 Prov: 09/02/15 DILTIAZEM HCL (Diltiazem 24HR ER) 120 MG PO DAILY 30 Days Prov: 08/04/17 Reported Medications FLUTICASONE/VILANTEROL (Breo Ellipta 100-25 Mcg INH) 1 POW IH DAILY Gabapentin (Gabapentin 100MG) 100 MG PO BID Linagliptin (Tradjenta) 5 MG PO DAILY SERTRALINE HYDROCHLORIDE (Zoloft 100MG) 100 MG PO DAILY Metoprolol Succinate Xl (Toprol Xl) 50 MG PO QHS ASPIRIN (Aspirin) 81 MG PO QHS History Medical History General CAD? No Angina: No [place]: No Hypertension? Yes Hyperlipidemia? Yes CHF? No DVT? No PE? No COPD? Yes Asthma? Yes Anemia? No GERD? Yes Gastric ulcers? No GI Bleed? No Hernia? No Thyroid Problems? No Hypothyroidism? No CVA? No Seizures? No Diabetes? Yes Insulin Dependent: No Insulin Pump: No Home FSBS? Yes Renal Insuffiency? No End Stage Renal Disease? No UTI? No Stones? No BPH? No GB Disease: Yes Nephritic Syndrome? No Asplenia? No Hepatitis? No Sickle Cell Disease? No Arthritis? No Migraines? Yes Cataracts? No Glaucoma? No MRSA? No HIV? No TB? No Anxiety? Yes Depression? No Cancer? 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 Respiratory see HPI, cough, shortness of breath, wheezing Cardiovascular see HPI, chest pain Gastrointestinal no symptoms reported Genitourinary no symptoms reported. Musculoskeletal no symptoms reported Skin no symptoms reported Psychiatric/Neurological no symptoms reported Physical Exam Vital Signs Vital Signs Date Time Temp Pulse Resp B/P Pulse O2 O2 Flow FiO2 Ox Delivery Rate 09/14 1827 74 18 161/97 98 The patient is in no respiratory distress (Rebecca GUPTA,[facility]) - WBC >12,000 or <4,000 or 10% bands? 2 or more SIRS Criteria Met? B/P:161/97 MAP:118 Creatinine >2.0? UA output<0.5ml/kg/hr for 2 hrs? Platelet count >100,000? Lactate >2.0mmol/1? INR >1.2 or PTT > than 60 sec? Evidence of Organ Dysfunction? Provider documented clinical suspician of infection? N Sepsis Criteria Count: 0 Sepsis Risk: Low Sepsis Risk General Appearance normal appearance, WD/WN, no apparent distress Eye Exam - bilateral eye normal exam, bilateral eye PERRL, bilateral eye EOMI Ear, Nose, Throat hearing grossly normal, normal ENT inspection Neck normal inspection, non-tender, supple, full range of motion Respiratory Status Yes: trachea midline, chest symmetrical, non tender chest. No: respiratory distress. Lung Sounds bilateral: normal breath sounds, lungs clear, wheezing. 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 No Results/Orders Laboratory Tests 09/14/17 1835: Sodium Pending, Potassium Pending, Chloride Pending, Carbon Dioxide Pending, BUN Pending, Creatinine Pending, Estimated Creat Clear Pending, Estimated GFR (MDRD) Pending, Glucose Pending, Calcium Pending, Total Bilirubin Pending, AST Pending, ALT Pending, Alkaline Phosphatase Pending, Creatine Kinase Pending, CK-MB (CK-2) Rel Index Pending, CK and CKMB Interp Pending, Troponin I Pending, Total Protein Pending, Albumin Pending, Globulin Pending, Albumin/Globulin Ratio Pending, D- Dimer Pending, WBC Pending, RBC Pending, Hgb Pending, Hct Pending, MCV Pending, RDW Pending, Plt Count Pending, Gran % Pending, Gran # Pending, Lymphocytes % Pending, Eosinophils % Pending, Basophils % Pending, Lymphocytes # Pending, Eosinophils # Pending, Basophils # Pending, PUBS MCHC Pending, MCH Pending Current Medication Orders Sig/Rohit Start time Last Medication Dose Route Stop Time Status Admin Albuterol/Ipratropium 3 ML ONCE ONE 09/14 1845 DC INH 09/14 1846 Methylprednisolone 125 MG ONCE ONE 09/14 1845 DC 09/14 Sodium Succinate IV 09/14 1846 1842 Methylprednisolone 0 .STK-MED ONE 09/14 1840 DC Sodium Succinate .ROUTE Sodium Chloride 10 ML PRN PRN 09/14 1830 AC IV 09/15 1830 Orders Procedure Date/time Status D-DIMER 09/14 1840 Active RT REQUEST DUONEB 09/14 1837 Active CHEST(2 VIEWS-NOT PORTABLE) 09/14 1831 Active IV SALINE LOCK 09/14 1831 Active CULTURE, BLOOD 09/14 1831 Active CBC WITH AUTO DIFF 09/14 1831 Active CARDIAC ENZYMES 09/14 1831 Active CHEM 12 PROFILE 09/14 1831 Active Departure Departure Time of Disposition 1844 Disposition Still a Patient Clinical Impression Primary Impression: COPD (chronic obstructive pulmonary disease) Condition STABLE Referrals CATALINA GUPTA,M S ([facility]) Discharge Counseling Counseled pt/family regarding diagnosis, test results, home care, follow up needs ED Critical Care Critical Care No If Critical Care minutes are documented, the time involved in the performance of seperately reportable procedures was not counted toward critical care time documented. I directly delivered medical care to this critically ill and/or injured patient. Timely evaluation and treatment was necessary to address the significant organ system(s) dysfunction present in this patient. at 1847
[2017-09-14 19:26] LABS: NEUTROPHILS 86 % (42-76)
[2017-09-14 19:42] LABS: BUN 15 mg/dL (7-18)
[2017-09-14 19:48] LABS: GFR (ESTIMATED) 43 ML/MIN (59-)
--- NOTE | 2017-09-14 21:43 | RADIOLOGY REPORT PS360 ---
CHEST(2 VIEWS-NOT PORTABLE) HISTORY: Pleuritic chest pain PLEURITIC PAIN ORDERING PHYSICIAN: Roel Malave MD PATIENT AGE: 57 years COMPARISON: 08/03/2017 FINDINGS: Unremarkable cardiovascular structures. Chronic pleural thickening on the right with elevated right hemidiaphragm. Evidence of old granulomatous disease. There are some increased markings in the left lower lobe laterally with chronic changes noted in the perihilar region on the left and in the right lower lobe. Suture line is present in the left perihilar region. No acute bony findings. IMPRESSION: 1. Chronic changes and chronic pleural thickening and elevated right hemidiaphragm. 2. Patchy atelectasis or infiltrate in the left lower lung zone laterally
[2017-09-14 23:24] VITALS: BP 151/65
--- NOTE | 2017-09-15 08:17 | RADIOLOGY REPORT PS360 ---
CTA-CHEST HISTORY: Cough and shortness of breath SOA ORDERING PHYSICIAN: Roel Malave MD PATIENT AGE: 57 years TECHNIQUE: Helical acquisition obtained following the bolus administration of 60 mL of Isovue 370 followed by a saline bolus. Axial, sagittal, and coronal reformatted images are generated and reviewed. COMPARISON: 05/18/2015 FINDINGS: PULMONARY ARTERIES:No pulmonary embolus evident. AORTA:No acute finding. No thoracic aortic aneurysm or dissection evident LUNGS:Scattered areas of pleural and parenchymal scarring. There is consolidation in the left lower lobe centrally. Laterally there is a 1.9 cm pleural-based density previously measuring 1.2 x 1.1 cm now measuring 1.9 x 1.5 cm.. There are faint scattered nodular opacities in the right upper lobe with some parenchymal opacification medially which is developed in the interval. There are scattered calcified granulomas. Diaphragmatic calcification is present on the right. PLEURAL SPACES:No significant effusion. No evidence of pneumothorax. HEART:Unremarkable. Normal heart size. No significant pericardial effusion. MEDIASTINAL AND HILAR STRUCTURES:There are mildly prominent left hilar lymph nodes measuring up to 1.7 x 1.2 cm. Mildly prominent subcarinal lymph nodes are also present. There are a few calcifications present in these nodes. BONY STRUCTURES:Degenerative changes LYMPH NODES:Mildly prominent left hilar and mediastinal lymph nodes UPPER ABDOMEN:Multiple somewhat ill-defined hypodense lesions are present in both lobes of the liver the largest in the left hepatic lobe laterally. This is ill-defined and difficult to definitely measure. Approximate measurements of the largest lesion is 5 x 3.7 cm. These lesions have developed since the previous exam. There is a stable right adrenal nodule at 1.4 cm. IMPRESSION: 1. No evidence of pulmonary embolus or aortic aneurysm. 2. Chronic pleural-parenchymal changes with new areas of airspace disease noted bilaterally consistent with atelectasis and/or infiltrate/pneumonia. 3. Enlarging left lower lobe subpleural nodule. There are faint nodular opacities in the right upper lobe anteriorly. These could be related to postinflammatory change or even neoplasm 4. New multiple hepatic lesions suspicious for metastatic disease.
== END 2017-09-14 23:25 | disposition home or self-care (01) ==
LOC: ER 18:22
PROVIDERS: Emergency Medicine
DX: J44.9 Chronic obstructive pulmonary disease, unspecified (principal); K21.9 Gastro-esophageal reflux disease without esophagitis; E11.9 Type 2 diabetes mellitus without complications; F41.9 Anxiety disorder, unspecified; F17.210 Nicotine dependence, cigarettes, uncomplicated; I10 Essential (primary) hypertension; Z88.2 Allergy status to sulfonamides; Z88.0 Allergy status to penicillin; Z88.6 Allergy status to analgesic agent
CPT/HCPCS: Q9967